=== PATIENT | female | born 1990 ===

== ENCOUNTER 2018-01-04 02:36 | Emergency (ER) | payer SELFPAY ==
[2018-01-04 03:08] VITALS: RESP 16
--- NOTE | 2018-01-04 04:29 | ED PDOC ---
HPI: Headache Time Seen by Provider: 01/04/18 03:07 Chief Complaint (Nursing): Headache Chief Complaint (Provider): Headache History Per: Patient History/Exam Limitations: no limitations Onset/Duration Of Symptoms: Days (x2 months) Current Symptoms Are (Timing): Still Present Additional Complaint(s): 27 year old female with no significant past medical history presents to the ED for evaluation of right sided headache onset x2 months associated nausea and dizziness. She reports she saw her PMD on onset of symptoms and was given an Rx for MRI but never went. Patient describes pain as a 10 out of 10 in severity to right posterior aspect of head. She took Tylenol at 16:00 with no relief. Patient denies fever, vomiting, neck pain or stiffness, visual changes, shortness of breath, sick contacts. LNMP was 11/27/17. PMD: Dr. Ames Past Medical History Reviewed: Historical Data, Nursing Documentation, Vital Signs Vital Signs: Last Vital Signs Temp 97.9 F 01/04/18 03:05 Pulse 84 01/04/18 03:05 Resp 16 01/04/18 03:05 BP Pulse Ox 98 01/04/18 03:05 - Medical History PMH: No Chronic Diseases - Surgical History Surgical History: No Surg Hx - Family History Family History: States: Unknown Family Hx - Social History Current smoker - smoking cessation education provided: No Ex-Smoker (has not smoked in the last 12 months): No Alcohol: None Drugs: Denies - Home Medications Home Medications: Ambulatory Orders Medication Instructions Recorded Acetaminophen/Butalbital/Caf 1 tab PO Q6 PRN #12 tab 01/04/18 [Fioricet] - Allergies Allergies/Adverse Reactions: Allergies Allergy/AdvReac Type Severity Reaction Status Date / Time No Known Allergies Allergy Verified 01/04/18 03:04 Review of Systems ROS Statement: Except As Marked, All Systems Reviewed And Found Negative Gastrointestinal: Positive for: Nausea Neurological: Positive for: Headache (right sided), Dizziness Physical Exam - Reviewed Nursing Documentation Reviewed: Yes Vital Signs Reviewed: Yes - Physical Exam Comments: GENERAL APPEARANCE: Patient is awake, alert, oriented x 3, in no acute distress. SKIN: Warm, dry; (-) cyanosis; (-) rash. HEAD: (-) scalp swelling or tenderness, (-) temporal artery tenderness. EYES: (-) conjunctival pallor, (-) scleral icterus. ENMT: (-) sinus tenderness; mucous membranes are moist. NECK: (-) tenderness, (-) stiffness, (-) meningismus, (-) lymphadenopathy. CHEST AND RESPIRATORY: (-) rales, (-) rhonchi, (-) wheezes; breath sounds equal bilaterally. HEART AND CARDIOVASCULAR: (-) irregularity; (-) murmur, (-) gallop. ABDOMEN AND GI: Soft; (-) tenderness. EXTREMITIES: (-) deformity. NEURO AND PSYCH: Mental status as above. pleat taper: Pupils _ reactive; EOMI; (-) facial asymmetry; tongue and uvula midline. Strength and DTRs symmetric. Babinski normal bilaterally. - Laboratory Results Result Diagrams: 01/04/18 04:50 01/04/18 04:50 Urine POC: Negative - ECG O2 Sat by Pulse Oximetry: 98 (RA) Pulse Ox Interpretation: Normal Medical Decision Making Medical Decision Making: Time: 3:45 Initial Impression: Headache Initial Plan: --CT head --BMP --Urine drug screen --U preg --CBC with differentials --Reglan 10 mg IVP --Tylenol 650 mg PO -- Anthropologist Physical --IV insertion 0430 Upreg: Negative Patient in CT scan. 0535 Labs reviewed. Accucheck: 81 CT reviewed, radiology report follows EXAM: CT Head Without Intravenous Contrast EXAM DATE/TIME: 01/04/18 (3:45am) CLINICAL HISTORY: 27 year old female with headache TECHNIQUE: Axial computed tomography images of the head without intravenous contrast. All CT scans at this facility use one or more dose reduction techniques, viz.: automated exposure control; ma/kV adjustment per patient size (including targeted exams where dose is matched to indication; i.e. head); or iterative reconstruction technique. COMPARISON: No relevant prior studies available FINDINGS: Brain: Normal. No acute hemorrhage. No significant white matter disease. No cerebral edema. Ventricles: Normal. No ventriculomegaly. Bones/joints: Normal. No acute fracture. Sinuses: Normal as visualized. No acute sinusitis. Mastoid air cells: Normal as visualized. No mastoid effusion. Soft tissues: Normal. IMPRESSION: No acute intracranial pathology is appreciated. Thank you for allowing us to participate in the care of your patient. Dictated and Authenticated by: Iesha Kendall MD 01/04/2018 5:33 AM Eastern Time ([place] & [place]) Toradol 30mg IM ordered for additional pain control. On re-evaluation, patient reports improvement of symptoms. On exam, patient remains AAOx3, in no acute distress. On exam, neck is supple, lungs CTA, cardiac RRR, abdomen soft/nontender, neuro exam shows no focal findings. VSS, stable for discharge. Diagnostic results d/w the patient in great detail. Dx of headache d/w the patient. Based on history, exam and diagnostic results plan will be for discharge and outpatient follow up. Advised to follow up with primary care physician/clinic/referred provider in 1- 2 days without fail. Return to the emergency room at any time for any new or worsening symptoms. Patient states she fully agrees with and understands discharge instructions. States that she agrees with the plan and disposition. Verbalized and repeated discharge instructions and plan. I have given the patient opportunity to ask any additional questions. Scribe Attestation: Documented by Destiny Whitaker, acting as a scribe for Meagan Gage PA-C Provider Scribe Attestation: All medical record entries made by the Scribe were at my direction and personally dictated by me. I have reviewed the chart and agree that the record accurately reflects my personal performance of the history, physical exam, medical decision making, and the department course for this patient. I have also personally directed, reviewed, and agree with the discharge instructions and disposition. Disposition - Clinical Impression Clinical Impression: Headache - Patient ED Disposition Is Patient to be Admitted: No Counseled Patient/Family Regarding: Studies Performed, Diagnosis, Need For Followup, Rx Given - Disposition Disposition: Routine/Home Disposition Time: 05:38 Condition: STABLE Additional Instructions: FOLLOW UP DIRECTED BY PMD FOR MRI EVALUATION. RETURN TO ED WITH ANY NEW OR WORSENING SYMPTOMS. Prescriptions: Acetaminophen/Butalbital/Caf [Fioricet] 1 tab PO Q6 PRN #12 tab PRN Reason: Headache Instructions: Migraine Headache (DC), Headache, Adult (DC) Forms: [facility] ([place]an) Print Language: CUBAN - POA Present On Arrival: None Results - Lab Results Lab Results: 01/04/18 01/04/18 04:50 04:50 WBC 12.7 H RBC 4.32 Hgb 13.3 Hct 40.3 MCV 93.3 MCH 30.9 MCHC 33.1 RDW 12.8 Plt Count 340 MPV 8.4 Neut % (Auto) 68.0 Lymph % (Auto) 23.6 Charlton % (Auto) 6.6 Eos % (Auto) 1.5 Baso % (Auto) 0.3 Neut # (Auto) 8.7 H Lymph # (Auto) 3.0 Charlton # (Auto) 0.8 Eos # (Auto) 0.2 Baso # (Auto) 0.0 Sodium 140 Potassium 3.9 Chloride 105 Carbon Dioxide 27 Anion Gap 12 BUN 14 Creatinine 0.6 L Est GFR ( Amer) > 60 Est GFR (Non-Af Amer) > 60 Random Glucose 101 Calcium 9.1
[2018-01-04 04:53] LABS: BASO % 0.3 % (0.0-2.0); EOS # 0.2 K/uL (0.0-0.7); EOS % 1.5 % (0.0-4.0); HEMOGLOBIN 13.3 g/dL (12.0-16.0); LYMPH % 23.6 % (20.0-40.0); MEAN CELL VOLUME 93.3 fl (81.0-99.0); MEAN CORPUSCULAR HEMOGLOBIN 30.9 pg (27.0-31.0); MEAN CORPUSCULAR HGB CONC 33.1 g/dL (33.0-37.0); MEAN PLATELET VOLUME 8.4 fl (7.2-11.7); MONO # 0.8 K/uL (0.0-0.8); MONO % 6.6 % (0.0-10.0); NEUT # 8.7 K/uL (1.8-7.0); NRBC % 0.1 % (0.0-0.0); RBC 4.32 Mil/uL (3.80-5.20); RED CELL DISTRIBUTION WIDTH 12.8 % (11.5-14.5); WHITE BLOOD COUNT 12.7 K/uL (4.8-10.8)
[2018-01-04 05:02] LABS: BLOOD UREA NITROGEN 14 mg/dl (7-17); CALCIUM 9.1 mg/dL (8.4-10.2); GFR AFRICAN-AMERICAN > 60; GFR NON-AFRICAN AMERICAN > 60
[2018-01-04 05:49] LABS: BARBITURATES, UR NEGATIVE (NEGATIVE); BENZODIAZEPINES, UR NEGATIVE (NEGATIVE); OPIATES, UR NEGATIVE (NEGATIVE); PHENCYCLIDINE, UR NEGATIVE (NEGATIVE)
[2018-01-04 06:54] VITALS: BP 115/69; PULSE 81; TEMP 98.2; O2SAT 100
--- NOTE | 2018-01-04 10:28 | CT ---
PROCEDURE: CT HEAD WITHOUT CONTRAST. HISTORY: headache COMPARISON: None available. TECHNIQUE: Axial computed tomography images were obtained through the head/brain without intravenous contrast. Coronal and sagittal reconstructed images. Radiation dose: Total exam DLP = 865.92 mGy-cm. This CT exam was performed using one or more of the following dose reduction techniques: Automated exposure control, adjustment of the mA and/or kV according to patient size, and/or use of iterative reconstruction technique. FINDINGS: HEMORRHAGE: No intracranial hemorrhage. BRAIN: No mass effect or edema. No atrophy or chronic microvascular ischemic changes. VENTRICLES: Unremarkable. No hydrocephalus. CALVARIUM: Unremarkable. PARANASAL SINUSES: Unremarkable as visualized. No significant inflammatory changes. MASTOID AIR CELLS: Unremarkable as visualized. No inflammatory changes. OTHER FINDINGS: None. IMPRESSION: No acute intracranial abnormalities. No significant findings to account for the clinical presentation. Concordant results (preliminary interpretation) provided by [facility]. Procedure Completed: 04:26 Preliminary ([facility]) Report: Dictated and Authenticated: 05:33 Final Interpretation: 10:26
== END 2018-01-04 06:15 | disposition home or self-care (01) ==
LOC: H.ER 02:36
DX: R51 Headache (principal)
CPT/HCPCS: 70450; 80048; 81025; 82948; 85025; 96372; 96374; 99285; G0480; J1885; J2765